=== PATIENT | female | born 1935 | race Caucasian/White ===

== ENCOUNTER → 2016-09-28 | Outpatient (CLI) | payer OTHER ==
[~2016-09-28] MED LIST: ASPIR 8181 MG PO; CARVEDILOL12.5 MG PO; COQ1050 MG PO; COZAAR50 MG PO; ELIQUIS5 MG PO; FISH OIL300 MG PO; IMDUR ER TAB 3030 MG PO; LASIX20 MG PO; MAGNESIUM500 MG PO; MULTI VITAMIN PO; PROTONIX40 MG PO; SYNTHROID50 MCG PO; VITAMIN D2000 UNI1 PO
== END ==
LOC: MAMO 07:40
DX: Z12.31 Encounter for screening mammogram for malignant neoplasm of breast (principal); Z85.3 Personal history of malignant neoplasm of breast
CPT/HCPCS: G0202

== ENCOUNTER 2020-10-27 20:19 | Emergency (ER) | payer MEDICARE ==
[2020-10-27 21:56] LABS: HEMOGLOBIN 15.2 gm/dl (12.3-15.3); RED BLOOD COUNT 4.23 M/UL (4.00-5.10); WHITE BLOOD COUNT 10.1 K/UL (4.5-11.0)
[2020-10-27 22:15] LABS: BUN/CREATININE RATIO 30 (0-10)
[2020-10-28] MEDS ORDERED: ONDANSETRON ODT4 MG SL (00:30)
[2020-10-28] MEDS ORDERED: PROTONIX 40 MG40 M1 PO (00:30)
== END 2020-10-28 01:00 | disposition home or self-care (01) ==
LOC: ER1 20:19
PROVIDERS: Physician Assistant
DX: R10.13 Epigastric pain (principal); R11.2 Nausea with vomiting, unspecified; R19.7 Diarrhea, unspecified; K21.9 Gastro-esophageal reflux disease without esophagitis; I48.91 Unspecified atrial fibrillation; I10 Essential (primary) hypertension; Z79.01 Long term (current) use of anticoagulants; Z90.49 Acquired absence of other specified parts of digestive tract; Z79.899 Other long term (current) drug therapy; Z85.3 Personal history of malignant neoplasm of breast
CPT/HCPCS: 80053; 83605; 83690; 85025; 93005; 96374; 99284; J2405; Q9967

== ENCOUNTER → 2020-12-29 | Outpatient (CLI) | payer MEDICARE ==
[~2020-12-29] MED LIST changes: +ONDANSETRON ODT4 MG SL; +PROTONIX 40 MG40 M1 PO
== END ==
LOC: MAMO 10:00
DX: Z12.31 Encounter for screening mammogram for malignant neoplasm of breast (principal); C50.419 Malignant neoplasm of upper-outer quadrant of unspecified female breast; D61.818 Other pancytopenia; D51.8 Other vitamin B12 deficiency anemias
CPT/HCPCS: 77063; 77067

== ENCOUNTER → 2021-03-31 | Outpatient (CLI) | payer MEDICARE | LOC: WCC 13:20 | DX: I87.2 Venous insufficiency (chronic) (peripheral) (principal); L97.812 Non-pressure chronic ulcer of other part of right lower leg with fat layer exposed; E11.622 Type 2 diabetes mellitus with other skin ulcer; E11.40 Type 2 diabetes mellitus with diabetic neuropathy, unspecified; I25.10 Atherosclerotic heart disease of native coronary artery without angina pectoris; I11.0 Hypertensive heart disease with heart failure; I50.9 Heart failure, unspecified; I48.91 Unspecified atrial fibrillation; M19.90 Unspecified osteoarthritis, unspecified site; Z79.01 Long term (current) use of anticoagulants; Z79.899 Other long term (current) drug therapy ==

== ENCOUNTER → 2021-04-06 | Outpatient (CLI) | payer MEDICARE | LOC: WCC 14:45 | DX: E11.622 Type 2 diabetes mellitus with other skin ulcer (principal); I87.2 Venous insufficiency (chronic) (peripheral); L97.822 Non-pressure chronic ulcer of other part of left lower leg with fat layer exposed; I25.10 Atherosclerotic heart disease of native coronary artery without angina pectoris; I11.0 Hypertensive heart disease with heart failure; I50.9 Heart failure, unspecified; I48.91 Unspecified atrial fibrillation; Z79.01 Long term (current) use of anticoagulants; Z79.899 Other long term (current) drug therapy ==

== ENCOUNTER → 2021-04-20 | Outpatient (CLI) | payer MEDICARE | LOC: WCC 13:42 | DX: I87.2 Venous insufficiency (chronic) (peripheral) (principal); L97.822 Non-pressure chronic ulcer of other part of left lower leg with fat layer exposed; I48.91 Unspecified atrial fibrillation; I11.0 Hypertensive heart disease with heart failure; I50.9 Heart failure, unspecified; E11.9 Type 2 diabetes mellitus without complications; Z79.01 Long term (current) use of anticoagulants; L97.812 Non-pressure chronic ulcer of other part of right lower leg with fat layer exposed; I25.10 Atherosclerotic heart disease of native coronary artery without angina pectoris; E11.622 Type 2 diabetes mellitus with other skin ulcer ==

== ENCOUNTER → 2021-04-22 | Outpatient (CLI) | payer MEDICARE | LOC: HEART 5 04-15 11:00 | DX: E11.622 Type 2 diabetes mellitus with other skin ulcer (principal); L97.812 Non-pressure chronic ulcer of other part of right lower leg with fat layer exposed; I87.2 Venous insufficiency (chronic) (peripheral) | CPT/HCPCS: 93970 ==

== ENCOUNTER → 2021-04-27 | Outpatient (CLI) | payer MEDICARE | LOC: WCC 11:35 | DX: E11.622 Type 2 diabetes mellitus with other skin ulcer (principal); L97.812 Non-pressure chronic ulcer of other part of right lower leg with fat layer exposed; I25.10 Atherosclerotic heart disease of native coronary artery without angina pectoris; I11.0 Hypertensive heart disease with heart failure; I50.9 Heart failure, unspecified; I48.91 Unspecified atrial fibrillation | CPT/HCPCS: 97597 ==

== ENCOUNTER → 2021-05-04 | Outpatient (CLI) | payer MEDICARE, OTHER | LOC: WCC 13:19 | DX: I87.2 Venous insufficiency (chronic) (peripheral) (principal); L97.812 Non-pressure chronic ulcer of other part of right lower leg with fat layer exposed; I11.0 Hypertensive heart disease with heart failure; I50.9 Heart failure, unspecified; E11.9 Type 2 diabetes mellitus without complications; Z79.01 Long term (current) use of anticoagulants; I25.10 Atherosclerotic heart disease of native coronary artery without angina pectoris; E11.622 Type 2 diabetes mellitus with other skin ulcer ==

== ENCOUNTER → 2021-05-11 | Outpatient (CLI) | payer MEDICARE | LOC: WCC 11:28 | DX: I87.2 Venous insufficiency (chronic) (peripheral) (principal); L97.812 Non-pressure chronic ulcer of other part of right lower leg with fat layer exposed; E11.622 Type 2 diabetes mellitus with other skin ulcer; I25.10 Atherosclerotic heart disease of native coronary artery without angina pectoris; I11.0 Hypertensive heart disease with heart failure; I50.9 Heart failure, unspecified; I48.91 Unspecified atrial fibrillation; E11.40 Type 2 diabetes mellitus with diabetic neuropathy, unspecified; M19.90 Unspecified osteoarthritis, unspecified site; Z79.01 Long term (current) use of anticoagulants; Z79.899 Other long term (current) drug therapy ==

== ENCOUNTER → 2021-05-22 | Outpatient (CLI) | payer MEDICARE | LOC: WCC 08:00 | DX: I87.2 Venous insufficiency (chronic) (peripheral) (principal); L97.822 Non-pressure chronic ulcer of other part of left lower leg with fat layer exposed; L97.912 Non-pressure chronic ulcer of unspecified part of right lower leg with fat layer exposed; I48.91 Unspecified atrial fibrillation; I11.0 Hypertensive heart disease with heart failure; I50.9 Heart failure, unspecified; E11.622 Type 2 diabetes mellitus with other skin ulcer; Z79.01 Long term (current) use of anticoagulants; I25.10 Atherosclerotic heart disease of native coronary artery without angina pectoris ==

== ENCOUNTER → 2021-06-03 | Outpatient (CLI) | payer MEDICARE | END | disposition home or self-care (01) | LOC: WCC 08:40 | PROC: 0JBN0ZZ Excision of Right Lower Leg Subcutaneous Tissue and Fascia, Open Approach (ICD-10-PCS; principal; 2021-06-03) | DX: E11.622 Type 2 diabetes mellitus with other skin ulcer (principal); L97.812 Non-pressure chronic ulcer of other part of right lower leg with fat layer exposed; I25.10 Atherosclerotic heart disease of native coronary artery without angina pectoris; I11.0 Hypertensive heart disease with heart failure; I50.9 Heart failure, unspecified; I48.91 Unspecified atrial fibrillation; E11.36 Type 2 diabetes mellitus with diabetic cataract; H26.9 Unspecified cataract; M19.90 Unspecified osteoarthritis, unspecified site; E11.40 Type 2 diabetes mellitus with diabetic neuropathy, unspecified; Z79.01 Long term (current) use of anticoagulants; Z79.2 Long term (current) use of antibiotics; Z79.899 Other long term (current) drug therapy ==

== ENCOUNTER 2021-10-15 15:01 | Inpatient (IN) | payer MEDICARE, OTHER ==
[~2021-10-15] VITALS: Ht 165.1 cm; Wt 83.9 kg
[~2021-10-15 15:01] MED LIST changes: -ELIQUIS5 MG PO; +FISH OIL 1,0001 EAC1 PO; -FISH OIL300 MG PO; -MULTI VITAMIN PO; +ONE DAILY WOME1 EACH PO
[2021-10-15 16:07] LABS: HEMOGLOBIN 13.7 gm/dl (12.3-15.3); RED BLOOD COUNT 3.87 M/UL (4.00-5.10); WHITE BLOOD COUNT 5.8 K/UL (4.5-11.0)
[2021-10-16 03:18] LABS: HEMOGLOBIN 12.4 gm/dl (12.3-15.3); RED BLOOD COUNT 3.59 M/UL (4.00-5.10); WHITE BLOOD COUNT 5.1 K/UL (4.5-11.0)
[2021-10-16 03:34] LABS: BUN/CREATININE RATIO 18 (0-10)
[2021-10-16] MEDS ORDERED: ELIQUIS5 MG PO (08:19)
[2021-10-16] MEDS ORDERED: GABAPENTIN300 MG PO (10:22)
[2021-10-16] MEDS ORDERED: TRAMADOL HCL50 MG PO (10:23)
[2021-10-16] MEDS ORDERED: TIZANIDINE HCL4 MG PO (10:23)
[2021-10-16] MEDS ORDERED: RANOLAZINE ER1000 MG PO (10:24)
[2021-10-16] MEDS ORDERED: CETIRIZINE HCL10 MG PO (10:25)
[2021-10-16] MEDS ORDERED: VITAMIN C500 M4 PO (10:26)
[2021-10-16] MEDS ORDERED: LOSARTAN POTAS100 MG PO (10:43)
[2021-10-17 02:37] LABS: RED BLOOD COUNT 3.73 M/UL (4.00-5.10); WHITE BLOOD COUNT 5.5 K/UL (4.5-11.0)
[2021-10-17 03:37] LABS: BUN/CREATININE RATIO 17 (0-10)
[2021-10-17] MEDS ORDERED: METRONIDAZOLE500 MG PO ×2 (17:42→18:24)
[2021-10-17] MEDS ORDERED: ONDANSETRON ODT4 MG SL (17:42)
[2021-10-17] MEDS ORDERED: LEVOFLOXACIN500 MG PO ×2 (17:42→18:24)
[2021-10-17] MEDS ORDERED: PROTONIX40 MG PO (18:12)
[2021-10-17] MEDS ORDERED: LACTINEX TABLET1 EA PO (18:24)
== END 2021-10-17 19:28 | disposition home or self-care (01) | DRG 379 ==
LOC: ER1 15:01 → CDU 18:33 → M/S 20:13
PROVIDERS: Physician Assistant; ADMIT Internal Medicine
DX: K57.21 Diverticulitis of large intestine with perforation and abscess with bleeding (principal); I48.91 Unspecified atrial fibrillation; I25.10 Atherosclerotic heart disease of native coronary artery without angina pectoris; Z20.822 Contact with and (suspected) exposure to COVID-19; I10 Essential (primary) hypertension; K57.90 Diverticulosis of intestine, part unspecified, without perforation or abscess without bleeding; Z96.642 Presence of left artificial hip joint; K62.5 Hemorrhage of anus and rectum; I49.5 Sick sinus syndrome; E03.9 Hypothyroidism, unspecified; Z79.01 Long term (current) use of anticoagulants; Z79.899 Other long term (current) drug therapy; Z90.49 Acquired absence of other specified parts of digestive tract; Z90.710 Acquired absence of both cervix and uterus; Z95.1 Presence of aortocoronary bypass graft; Z80.3 Family history of malignant neoplasm of breast; Z88.8 Allergy status to other drugs, medicaments and biological substances; Z82.49 Family history of ischemic heart disease and other diseases of the circulatory system; Z83.3 Family history of diabetes mellitus; Z95.0 Presence of cardiac pacemaker
CPT/HCPCS: 36415; 80053; 81001; 82270; 82550; 82553; 83605; 83690; 84484; 85025; 85027; 87086; 93005; 96374; 96375; 99285; C9113; J2185; J2270; J2543; J7030; Q9967; U0002

== ENCOUNTER → 2022-01-01 | Outpatient (CLI) | payer MEDICARE ==
[~2022-01-01] MED LIST changes: +CETIRIZINE HCL10 MG PO; +ELIQUIS5 MG PO; +GABAPENTIN300 MG PO; +LACTINEX TABLET1 EA PO; +LEVOFLOXACIN500 MG PO; +LOSARTAN POTAS100 MG PO; +METRONIDAZOLE500 MG PO; +RANOLAZINE ER1000 MG PO; +TIZANIDINE HCL4 MG PO; +TRAMADOL HCL50 MG PO; +VITAMIN C500 M4 PO
== END ==
LOC: MAMO 11:00
DX: C50.419 Malignant neoplasm of upper-outer quadrant of unspecified female breast (principal); D61.818 Other pancytopenia; D51.8 Other vitamin B12 deficiency anemias
CPT/HCPCS: 77063; 77067